=== PATIENT | male | born 1960 | race African-American/Black ===

== ENCOUNTER 2018-04-26 04:39 | Emergency (ER) | payer OTHER ==
[~2018-04-26] VITALS: Ht 180.3 cm; Wt 77.1 kg
[2018-04-26 04:45] VITALS: BP 139/80
[2018-04-26] MEDS: ALBUTEROL FS 2.5 MG/3 ML VIAL.NEB NEB ONE (04:54)
[2018-04-26] MEDS ORDERED: predniSONE 20 MG TABLET ONE (04:54)
[2018-04-26] MEDS: IPRATROPIUM NEB FS 0.5 MG/2.5 ML AMPUL.NEB NEB ONE (04:54)
[2018-04-26] MEDS ORDERED: IPRATROPIUM NEB FS 0.5 MG/2.5 ML AMPUL.NEB ONE (05:02)
[2018-04-26] MEDS ORDERED: ALBUTEROL FS 2.5 MG/3 ML VIAL.NEB ONE (05:02)
[2018-04-26] MEDS: predniSONE 20 MG TABLET PO ONE (05:46)
[2018-04-26] MEDS: ALBUTEROL SULFATE 8 GM HFA.AER.AD IH ONE (05:47)
== END 2018-04-26 05:48 | disposition home or self-care (01) ==
LOC: ER 04:41
DX: J45.901 Unspecified asthma with (acute) exacerbation (principal)
CPT/HCPCS: A4606; Z7610

== ENCOUNTER 2018-06-17 23:49 | Emergency (ER) | payer OTHER ==
[~2018-06-17] VITALS: Ht 185.4 cm; Wt 71.7 kg
[2018-06-17] MEDS ORDERED: ALBUTEROL FS 2.5 MG/3 ML VIAL.NEB ONE (23:51)
[2018-06-17] MEDS ORDERED: IPRATROPIUM NEB FS 0.5 MG/2.5 ML AMPUL.NEB ONE (23:51)
[2018-06-17 23:53] VITALS: BP 132/68
[2018-06-17] MEDS: IPRATROPIUM NEB FS 0.5 MG/2.5 ML AMPUL.NEB NEB ONE (23:55)
[2018-06-17] MEDS: ALBUTEROL FS 2.5 MG/3 ML VIAL.NEB NEB ONE (23:55)
--- NOTE | 2018-06-17 23:58 | NUR ---
RT AT BEDSIDE FOR BREATHING TX.
[2018-06-18] MEDS ORDERED: methylPREDNISolone SOD SUCC 125 MG/2ML VIAL ONE
[2018-06-18] MEDS ORDERED: Magnesium 1GM/D5W 100ML PREMIX 200 ML IV ONE
[2018-06-18] MEDS: Magnesium 1GM/D5W 100ML PREMIX 200 ML IV ONE (00:09)
[2018-06-18] MEDS: methylPREDNISolone SOD SUCC 125 MG/2ML VIAL IV ONE (00:10)
--- NOTE | 2018-06-18 01:38 | NUR ---
PT STATES FEELING FINE, NO SOB NOTED. DR. GRANT AT BEDSIDE SPEAKING TO PT REGARDING POC
== END 2018-06-18 01:47 | disposition home or self-care (01) ==
LOC: ER 23:51
DX: J45.901 Unspecified asthma with (acute) exacerbation (principal); E11.9 Type 2 diabetes mellitus without complications; Z60.2 Problems related to living alone
CPT/HCPCS: A4606; J2930; J3475; Z7610

== ENCOUNTER 2019-01-08 13:03 | Emergency (ER) | payer MEDICAID, OTHER ==
[~2019-01-08] VITALS: Ht 180.3 cm; Wt 65.8 kg
[2019-01-08 13:27] VITALS: BP 149/83
[2019-01-08] MEDS ORDERED: Magnesium 1GM/D5W 100ML PREMIX 200 ML IV ONE ×2 (13:41→13:52)
[2019-01-08] MEDS ORDERED: ALBUTEROL FS 2.5 MG/3 ML VIAL.NEB ONE (13:52)
[2019-01-08] MEDS ORDERED: methylPREDNISolone SOD SUCC 125 MG/2ML VIAL ONE (13:52)
[2019-01-08] MEDS ORDERED: methylPREDNISolone SOD SUCC 125 MG/2ML VIAL IV ONE (14:00)
[2019-01-08] MEDS ORDERED: ALBUTEROL FS 2.5 MG/3 ML VIAL.NEB NEB ONE (14:00)
== END 2019-01-08 15:11 | disposition home or self-care (01) ==
LOC: ER 13:09
DX: J45.901 Unspecified asthma with (acute) exacerbation (principal); E11.9 Type 2 diabetes mellitus without complications; Z60.2 Problems related to living alone; Z87.891 Personal history of nicotine dependence
CPT/HCPCS: 93005; 94640; 96365; 96375; 99291; J2930; J3475

== ENCOUNTER 2022-03-22 05:44 | Inpatient (IN) | payer MEDICAID, OTHER ==
[~2022-03-22] VITALS: Ht 180.3 cm; Wt 65.8 kg
--- NOTE | 2022-03-22 06:03 | NUR ---
BIBS C/O SOB WORSTENED SINCE YESTERDAY. HX OF CHRONIC ASTHMA AND RAN OUT OF INHALER.WHEEZES AUSCULATED BILATERALLY +TACHYPNEA AND INCREASED WORK OF BREATHING. MD WAS AT BEDSIDE FOR EVAL. 95% RA HOOKED UP TO PULSE OX AND MONITOR.
--- NOTE | 2022-03-22 06:04 | NUR ---
PT SEEN BY DR. PATEL
--- NOTE | 2022-03-22 06:05 | NUR ---
PT PROVIDED WITH WARM BLANKET FOR COMFORT
[2022-03-22] MEDS ORDERED: predniSONE 20 MG TABLET ONE (06:07)
--- NOTE | 2022-03-22 06:10 | NUR ---
ONLINE ADVERTISING DIRECTOR AT PT'S BEDSIDE
[2022-03-22] MEDS ORDERED: IPRATROPIUM NEB FS 0.5 MG/2.5 ML AMPUL.NEB ONE (06:15)
[2022-03-22] MEDS ORDERED: ALBUTEROL FS 2.5 MG/3 ML VIAL.NEB ONE (06:15)
--- NOTE | 2022-03-22 06:16 | NUR ---
20G IV LINE ESTABLISHEDT AT [facility]. BLOOD DRAWN AND SENT TO LAB.
--- NOTE | 2022-03-22 06:16 | NUR ---
RT AT BEDSIDE FOR BREATHING TX
[2022-03-22] MEDS ORDERED: ALBUTEROL FS 2.5 MG/3 ML VIAL.NEB CONTNEB ONE (06:30)
[2022-03-22] MEDS ORDERED: predniSONE 20 MG TABLET PO ONE (06:30)
[2022-03-22] MEDS ORDERED: IPRATROPIUM NEB FS 0.5 MG/2.5 ML AMPUL.NEB NEB ONE (06:30)
--- NOTE | 2022-03-22 06:51 | NUR ---
CHAIN MAKER HAND AT PT'S BEDSIDE
[2022-03-22 06:54] LABS: CALCIUM, SERUM 8.8 mg/dL (8.5-10.1); CARBON DIOXIDE 28 mmol/L (21-32); CHLORIDE 108 mmol/L (98-107); CREATININE 1.5 mg/dL (0.6-1.3); GLUCOSE 77 mg/dL (74-106); POTASSIUM 4.1 mmol/L (3.5-5.1); SODIUM SERUM 143 mmol/L (136-145); UREA NITROGEN, BLOOD 13 mg/dL (7-18)
[2022-03-22 06:55] LABS: BASOPHILS % (AUTO) 0.6 % (0.0-2.0); EOSINOPHILS % (AUTO) 11.3 % (0.0-6.0); HEMATOCRIT 41 % (39-51); HEMOGLOBIN 13.1 g/dL (13.5-17.5); LYMPHOCYTES # (AUTO) 2.2 K/uL (0.8-4.8); LYMPHOCYTES % (AUTO) 36.3 % (20.0-44.0); MEAN CORPUSCULAR HGB CONC 32 g/dl (31.0-36.0); MEAN CORPUSCULAR VOLUME 96 fL (80-96); MONOCYTES # (AUTO) 0.5 K/uL (0.1-1.30); MONOCYTES % (AUTO) 8.7 % (2.0-12.0); NEUTROPHILS # (AUTO) 2.6 K/uL (1.8-8.9); NEUTROPHILS % (AUTO) 43.1 % (43.0-81.0); PLATELET COUNT (AUTO) 194 K/uL (150-450); RED BLOOD CELL COUNT(AUTO) 4.24 MIL/uL (4.5-6.0)
--- NOTE | 2022-03-22 07:11 | NUR ---
TROPONIN 251
--- NOTE | 2022-03-22 07:24 | NUR ---
QUINN SWABBED AND SENT TO LAB
[2022-03-22] MEDS ORDERED: ASPIRIN 325 MG TABLET ONE (07:27)
[2022-03-22] MEDS ORDERED: ASPIRIN 325 MG TABLET PO ONE (07:30)
--- NOTE | 2022-03-22 07:30 | NUR ---
COVID TEST COLLECTED AND SENT
[2022-03-22] MEDS ORDERED: IV NS 0.9% 1,000 ML IV PRN (09:00)
[2022-03-22] MEDS ORDERED: FLUT1DIS5 IH (09:08)
[2022-03-22] MEDS ORDERED: IPRA4AER IH (09:08)
[2022-03-22] MEDS ORDERED: TRAZ-257 PO (09:08)
[2022-03-22] MEDS ORDERED: DIAZ10TA PO (09:08)
[2022-03-22] MEDS ORDERED: TIOT18CA3 IH (09:08)
[2022-03-22] MEDS ORDERED: ALBU18HF2 IH (09:08)
[2022-03-22] MEDS ORDERED: NITROGLYCERIN 0.4 MG/TAB BOTTLE ONE (09:31)
[2022-03-22] MEDS ORDERED: IOHEXOL-350 100 ML VIAL IV ONE (09:31)
[2022-03-22] MEDS ORDERED: CT SWABBABLE VALVE TRANS SET 1 EA INFUS.SET MC ONE (09:31)
[2022-03-22] MEDS ORDERED: IV NS 0.9% 250 ML IV ONE (09:32)
--- NOTE | 2022-03-22 09:34 | NUR ---
PT TAKEN TO RADIOLOGY
[2022-03-22 09:40] LABS: THYROID STIMULATING HORMONE 2.107 uIU/mL (0.358-3.74)
[2022-03-22] MEDS: METOPROLOL TARTRATE INJ 5 MG/5 ML AMPUL IVP PRN ×4 (09:45→10:00)
[2022-03-22] MEDS ORDERED: METOPROLOL TARTRATE INJ 5 MG/5 ML AMPUL ONE (09:55)
[2022-03-22] MEDS ORDERED: NITROGLYCERIN 0.4 MG/TAB BOTTLE SL ONE (10:00)
--- NOTE | 2022-03-22 10:16 | NUR ---
PT RETURNED FROM [facility]IA [facility]
--- NOTE | 2022-03-22 10:28 | NUR ---
DR JONAS AT BEDSIDE W/ PT.
--- NOTE | 2022-03-22 10:28 | NUR ---
BED ASSIGNED 117-2
--- NOTE | 2022-03-22 10:37 | NUR ---
REPORT GIVEN TO SOON FOR WINSTON
[2022-03-22] MEDS ORDERED: MAG HYDROX/AL HYDROX/SIMETH 30 ML UDC PO PRN (11:00)
[2022-03-22] MEDS ORDERED: ONDANSETRON HCL/PF 4 MG/2 ML VIAL IVP PRN (11:00)
[2022-03-22] MEDS ORDERED: ACETAMINOPHEN 325 MG TABLET PO PRN (11:00)
[2022-03-22] MEDS ORDERED: Z GUARD REMEDY 4 OZ OINT TP PRN (11:00)
--- NOTE | 2022-03-22 11:03 | NUR ---
PT TRANSPORTED TO TELE FLOOR WITH ACLS PROTOCOLS IN PLACE, PT ABLE TO AMBULATE TO HIS BED ON HIS OWN.
--- NOTE | 2022-03-22 11:10 | NUR ---
RN OPENING NOTE PATIENT RECEIVED FROM ER VIA GURNEY ACCOMPANIED BY 2 ER STAFF. INITIAL ASSESSMENT AND PHYSICAL ASSESSMENT DONE. PATIENT WAS ORIENTED TO ROOM. ON ROOM AIR. SINUS RHYTHM ON DIDACTIC PROGRAM IN DIETETICS DIRECTOR. LEFT ANTECUBITAL SALINE LOCK INTACT AND PATENT. BED IS LOCKED IN LOWEST POSITION, 3 SIDE RAILS UP, CALL LIGHT WITHIN REACH. WILL CONTINUE TO MONITOR.
[2022-03-22 12:00] VITALS: BP 154/90
[2022-03-22] MEDS: methylPREDNISolone SOD SUCC 40 MG/ML VIAL IV SCH ×2 (12:25→21:24)
[2022-03-22] MEDS: ATORVASTATIN 10 MG TABLET PO SCH (12:25)
[2022-03-22] MEDS: ASPIRIN 81 MG TAB.CHEW PO SCH (12:25)
[2022-03-22] MEDS: IPRATROPIUM NEB FS 0.5 MG/2.5 ML AMPUL.NEB NEB SCH ×4 (13:24→23:30)
[2022-03-22] MEDS: ALBUTEROL FS 2.5 MG/0.5 ML VIAL.NEB NEB SCH ×4 (13:24→23:30)
--- NOTE | 2022-03-22 13:32 | NUR ---
RN NOTE SPOKE WITH DR JONAS OVER THE PHONE TO GIVE UPDATES RE: PATIENT'S TROPONIN AND EKG RESULT AND TO OBTAIN ORDER FOR NICOTINE PATCH AND DVT PROPHYLAXIS. NICOTINE PATCH IS ORDERED. DVT PROPHYLAXIS WILL BE ORDERED AFTER HE SEES THE PATIENT.
[2022-03-22] MEDS: DILTIAZEM HCL CD 240 MG PO SCH (13:36)
[2022-03-22] MEDS: ENOXAPARIN SODIUM 40 MG/0.4 ML DISP.SYRIN SQ SCH (14:33)
[2022-03-22] MEDS: NICOTINE PATCH (21MG) 21 MG PATCH.TD24 TD SCH (14:34)
[2022-03-22 16:00] VITALS: BP 153/95
--- NOTE | 2022-03-22 18:56 | NUR ---
RN CLOSING NOTE PATIENT REMAINED STABLE THROUGHOUT SHIFT. BREATHING UNLABORED, DENIES PAIN, AND NOT IN ANY FORM OF DISTRESS. IV LINE INTACT AND PATENT. BED IS LOCKED IN LOWEST POSITION, CALL LIGHT WITHIN REACH, 3 SIDE RAILS UP. WILL ENDORSE TO HOISTING ENGINE OPERATOR NURSE.
[2022-03-22 20:00] VITALS: BP 150/62
[2022-03-22] MEDS ORDERED: DIAZEPAM 10 MG TABLET ONE (21:18)
[2022-03-22] MEDS ORDERED: DIAZEPAM 10 MG TABLET PO SCH (22:00)
[2022-03-22] MEDS ORDERED: MAGNESIUM HYDROXIDE 30 ML UDC PO PRN (22:00)
[2022-03-23] VITALS: BP 128/69
[2022-03-23 04:00] VITALS: BP 142/88
[2022-03-23] MEDS: IPRATROPIUM NEB FS 0.5 MG/2.5 ML AMPUL.NEB NEB SCH ×3 (04:27→11:33)
[2022-03-23] MEDS: ALBUTEROL FS 2.5 MG/0.5 ML VIAL.NEB NEB SCH ×3 (04:27→11:33)
[2022-03-23] MEDS: methylPREDNISolone SOD SUCC 40 MG/ML VIAL IV SCH (05:18)
--- NOTE | 2022-03-23 07:37 | NUR ---
RN CLOSING NOTE PATIENT REMAINED STABLE THROUGHOUT SHIFT, NO SIGNIFICANT CHANGE IN CONDITION DURING NIGHT, AT ROOM AIR NO SOB/ACUTE DISTRESS NOTED DURING THE NIGHT, IV LINE INTACT AND PATENT, BED IS LOCKED IN LOWEST POSITION, CALL LIGHT WITHIN REACH, 2 SIDE RAILS UP, ENDORSED TO OPAL CASAS FOR CONTINUATION OF CARE.
--- NOTE | 2022-03-23 07:50 | NUR ---
RN OPENING NOTE PATIENT AWAKE IN BED RESTING. A/O X4. NO S/S OF PAIN NOTED AT THIS TIME. ON ROOM AIR, NO DISTRESS OR SHORTNESS OF BREATH NOTED. IV ACCESS LAC #20G, INTACT, PATENT AND FLUSHING WELL. PATIENT ON EXTERNAL HYGIENE TEACHER WITH CURRENT READING OF SR AND HR OF 60, NO CARDIAC DISTRESS NOTED. FALL AND SAFETY MEASURES IN PLACE, BED ALARM ON, BED IN LOW AND LOCK POSITION, CALL LIGHT AND TABLE WITHIN EASY REACH, SIDE RAILS UP X2. WILL CONTINUE TO MONITOR.
[2022-03-23 08:00] VITALS: BP 151/85
[2022-03-23 08:06] LABS: HEMATOCRIT 40 % (39-51); HEMOGLOBIN 13.1 g/dL (13.5-17.5); LYMPHOCYTES # (AUTO) 0.7 K/uL (0.8-4.8); LYMPHOCYTES % (AUTO) 4.5 % (20.0-44.0); MEAN CORPUSCULAR HGB CONC 32 g/dl (31.0-36.0); MEAN CORPUSCULAR VOLUME 95 fL (80-96); MONOCYTES # (AUTO) 0.4 K/uL (0.1-1.30); MONOCYTES % (AUTO) 2.4 % (2.0-12.0); NEUTROPHILS # (AUTO) 14.1 K/uL (1.8-8.9); NEUTROPHILS % (AUTO) 93.1 % (43.0-81.0); PLATELET COUNT (AUTO) 210 K/uL (150-450); RED BLOOD CELL COUNT(AUTO) 4.24 MIL/uL (4.5-6.0); WHITE BLOOD COUNT (AUTO) 15.1 K/uL (4.3-11.0)
[2022-03-23 08:25] LABS: ALBUMIN 3.3 g/dL (3.4-5.0); BILIRUBIN,TOTAL 0.2 mg/dL (0.2-1.0); CALCIUM, SERUM 8.9 mg/dL (8.5-10.1); CREATININE 1.6 mg/dL (0.6-1.3); MAGNESIUM 2.3 mg/dL (1.8-2.4); PHOSPHORUS 1.8 mg/dL (2.5-4.9); POTASSIUM 4.2 mmol/L (3.5-5.1)
[2022-03-23] MEDS ORDERED: methylPREDNISolone SOD SUCC 40 MG/ML VIAL IV SCH (09:00)
[2022-03-23] MEDS: ATORVASTATIN 10 MG TABLET PO SCH (09:15)
[2022-03-23] MEDS: NICOTINE PATCH (21MG) 21 MG PATCH.TD24 TD SCH (09:15)
[2022-03-23] MEDS: DILTIAZEM HCL CD 240 MG PO SCH (09:15)
[2022-03-23] MEDS: ASPIRIN 81 MG TAB.CHEW PO SCH (09:16)
[2022-03-23] MEDS ORDERED: ATOR10TA PO (09:50)
[2022-03-23] MEDS ORDERED: METH4TAB3 PO (09:50)
[2022-03-23] MEDS ORDERED: DILT240C88 PO (09:50)
[2022-03-23] MEDS ORDERED: ASPI-1169 PO (09:50)
[2022-03-23 12:00] VITALS: BP 151/85
--- NOTE | 2022-03-23 13:03 | NUR ---
AWAITS ACTUAL PRESCRIPTON FOR HIS INHALER,DR. JONAS AWARE.
[2022-03-23] MEDS: ENOXAPARIN SODIUM 40 MG/0.4 ML DISP.SYRIN SQ SCH (14:00)
--- NOTE | 2022-03-23 14:11 | NUR ---
RN NOTE 1400 LOVENOX NOT ADMINISTERED, PATIENT REFUSED BEFORE DISCHARGED.
--- NOTE | 2022-03-23 14:15 | NUR ---
BACK GRAY CLOTH WASHER NOTE PATIENT DISCHARGE IN MEDICAL STABLE CONDITIONS. A/O X4. V/S TAKEN, STABLE AND RECORDED. NO IV ACCESS. SKIN ASSESSMENT DONE, SKIN INTACT. NAME ARM BAND REMOVED. ALL BELONGINGS CHECKED AND SIGNED. HEALTH TEACHING AND DISCHARGE INSTRUCTIONS GIVEN AND VERBALIZED UNDERSTANDING. DISCUSS PRESCRIPTION WITH PATIENT AND INSTRUCTED TO MAKE APPOINTMENT WITH HIS PRIMARY DOCTOR. PATIENT LEFT UNIT AMBULATING WITH NO SIGNS OF DISTRESS, ACCOMPANIED BY RN TO THE LOBBY. CHARGE NURSE AWARE OF DISCHARGED.
== END 2022-03-23 14:16 | disposition home or self-care (01) | DRG 133 ==
LOC: ER 05:46 → TELE1 10:52 → MEDSG1 03-23 08:26
PROVIDERS: ADMIT Internal Medicine; ATTEND Internal Medicine
DX: J96.01 Acute respiratory failure with hypoxia (principal); N17.0 Acute kidney failure with tubular necrosis; I21.4 Non-ST elevation (NSTEMI) myocardial infarction; J45.901 Unspecified asthma with (acute) exacerbation; Z20.822 Contact with and (suspected) exposure to COVID-19; E11.9 Type 2 diabetes mellitus without complications; F17.200 Nicotine dependence, unspecified, uncomplicated; Z79.51 Long term (current) use of inhaled steroids; Z79.899 Other long term (current) drug therapy; I10 Essential (primary) hypertension
CPT/HCPCS: 36415; 71045-TC; 75574; 80048-TC; 80053-TC; 80061-TC; 83735-TC; 83880; 84100-TC; 84439-TC; 84443-TC; 84484-TC; 85025-TC; 87081-TC; 93307-TC; C9803; G0378; J1650; J2920; J3490; J7030; J7050; Q9967

== ENCOUNTER 2022-08-27 17:17 | Emergency (ER) | payer OTHER ==
[~2022-08-27] VITALS: Ht 180.3 cm; Wt 77.1 kg
[~2022-08-27 17:17] MED LIST: ALBU18HF2 IH; ASPI-1169 PO; ATOR10TA PO; DIAZ10TA PO; DILT240C88 PO; FLUT1DIS5 IH; IPRA4AER IH; METH4TAB3 PO; TIOT18CA3 IH; TRAZ-257 PO
--- NOTE | 2022-08-27 18:15 | NUR ---
DR COLLINS AT BEDSIDE FOR EVAL
--- NOTE | 2022-08-27 18:19 | NUR ---
TECH AT BEDSIDE FOR EKG
--- NOTE | 2022-08-27 18:35 | NUR ---
PHLEB AT BEDSIDE FOR BLOOD DRAW
--- NOTE | 2022-08-27 19:33 | NUR ---
patient came back from ct.
[2022-08-27 19:59] LABS: BASOPHILS % (AUTO) 0.4 % (0.0-2.0); HEMATOCRIT 38 % (39-51); HEMOGLOBIN 12.3 g/dL (13.5-17.5); LYMPHOCYTES # (AUTO) 2.5 K/uL (0.8-4.8); LYMPHOCYTES % (AUTO) 34.6 % (20.0-44.0); MEAN CORPUSCULAR HGB CONC 33 g/dl (31.0-36.0); MEAN CORPUSCULAR VOLUME 96 fL (80-96); MONOCYTES # (AUTO) 0.6 K/uL (0.1-1.30); MONOCYTES % (AUTO) 8.4 % (2.0-12.0); NEUTROPHILS # (AUTO) 3.7 K/uL (1.8-8.9); NEUTROPHILS % (AUTO) 51.6 % (43.0-81.0); PLATELET COUNT (AUTO) 225 K/uL (150-450); RED BLOOD CELL COUNT(AUTO) 3.93 MIL/uL (4.5-6.0); WHITE BLOOD COUNT (AUTO) 7.2 K/uL (4.3-11.0)
[2022-08-27 20:06] LABS: CALCIUM, SERUM 8.4 mg/dL (8.5-10.1); CARBON DIOXIDE 28 mmol/L (21-32); CHLORIDE 107 mmol/L (98-107); CREATININE 1.5 mg/dL (0.6-1.3); GLUCOSE 82 mg/dL (74-106); POTASSIUM 4.5 mmol/L (3.5-5.1); SODIUM SERUM 140 mmol/L (136-145); UREA NITROGEN, BLOOD 22 mg/dL (7-18)
[2022-08-27 20:23] LABS: ALANINE AMINOTRANSFERASE 16 U/L (12-78); ALBUMIN 3.5 g/dL (3.4-5.0); ALKALINE PHOSPHATASE 87 U/L (46-116); ASPARTATE AMINOTRANSFERASE 16 U/L (15-37); BILIRUBIN,DIRECT 0.1 mg/dL (0.0-0.2); BILIRUBIN,TOTAL 0.2 mg/dL (0.2-1.0); TOTAL PROTEIN, SERUM 6.7 g/dL (6.4-8.2)
[2022-08-27] MEDS ORDERED: DILT240C88 PO (21:45)
[2022-08-27] MEDS ORDERED: ASPI-1169 PO (21:45)
[2022-08-27] MEDS ORDERED: LIDO30AD10 TP (21:45)
[2022-08-27] MEDS ORDERED: NAPR-1164 PO (21:45)
[2022-08-27] MEDS ORDERED: TRAZ-257 PO (21:45)
[2022-08-27] MEDS ORDERED: ALBU8.5H8 INH (21:45)
--- NOTE | 2022-08-27 21:51 | NUR ---
PT IS MEDICALLY STABLE FOR D/C. IV removed. Catheter intact and site benign. Pressure and 4x4 applied to site. No bleeding noted.Patient discharged to home in stable condition. Written and verbal after care instructions given. Patient verbalizes understanding of instruction.
[2022-08-27 21:52] VITALS: BP 137/84
== END 2022-08-27 21:52 | disposition home or self-care (01) ==
LOC: ER 17:18
DX: R07.9 Chest pain, unspecified (principal); I25.2 Old myocardial infarction; J45.909 Unspecified asthma, uncomplicated; E11.9 Type 2 diabetes mellitus without complications; Z60.2 Problems related to living alone; Z88.8 Allergy status to other drugs, medicaments and biological substances; Z79.899 Other long term (current) drug therapy
CPT/HCPCS: 36415; 70450-TC; 71045-TC; 80048-TC; 80076-TC; 84484-TC; 85025-TC